=== PATIENT | male | born 1995 | race Caucasian/White ===

== ENCOUNTER 2017-05-14 01:50 | Emergency (ER) | payer SELFPAY ==
[2017-05-14] MEDS ORDERED: Lidocaine 2% with EPINEPHrine 1:100,000 20 ML MDV INJECT ONE (01:51)
[2017-05-14] MEDS ORDERED: Diphtheria,Pertussis(Acell),Tetanus Vaccine 0.5 ML SDV IM ONE (02:24)
--- NOTE | 2017-05-14 02:47 | ER ---
DATE SEEN: 05/14/2017 CHIEF COMPLAINT: Laceration. HISTORY OF PRESENT ILLNESS: This is a 22-year-old male who punched a window earlier today and complains of laceration on the right wrist. PAST MEDICAL HISTORY: No active medical problems. ALLERGIES: No allergies. Does not remember his last tetanus. PHYSICAL EXAMINATION: GENERAL: Afebrile, not in distress. EXTREMITIES: Right wrist revealed a 4 cm size laceration at the dorsum. He had full range of motion of the MCP joint and wrist. IMPRESSION: Simple laceration. PLAN: Local anesthesia was placed with lidocaine 2% with epinephrine and then placed 5 mayda with no complications. Tetanus was addressed. The patient was advised to follow up in the office in 7 to 10 days for removal of mayda. /[id number] JOSE/KOREY
[2017-05-14 02:52] VITALS: BP 152/88
== END 2017-05-14 02:35 | disposition home or self-care (01) ==
LOC: FB.ED 01:50
DX: S61.511A Laceration without foreign body of right wrist, initial encounter (principal); Z23 Encounter for immunization; W22.8XXA Striking against or struck by other objects, initial encounter
CPT/HCPCS: 12001; 12002; 90472; 90715; 99282